=== PATIENT | female | born 1990 | race Caucasian/White ===

== ENCOUNTER 2022-03-26 07:03 | Day surgery (SDC) | payer OTHER ==
[~2022-03-26] VITALS: Ht 157.5 cm; Wt 79.2 kg
--- NOTE | 2022-03-26 07:50 | NUR ---
Patient arrived to the [facility] suite, identification and demographics confirmed. Patient to room 8, AAO and ambulatory vitals obtained, ID/allergy/fall bands placed, changed into hospital gown, procedure and timeline explained. All questions answered, patient presents no concerns at this time.
[2022-03-26 07:51] LABS: HEMOGLOBIN 13.2 g/dl (12.0-16.0); MEAN CELL VOLUME 91.1 fL CALC (80.0-100.0); MEAN CORPUSCULAR HGB 30.8 pG CALC (26.0-32.0); MEAN CORPUSCULAR HGB CONC 33.8 g/dL CAL (32.0-36.0); NEUT# 3.02 thou/uL (2.00-7.15); RED BLOOD COUNT 4.28 mill/uL (4.20-5.60); RED CELL DISTRI WIDTH 12.3 % (11.5-15.5)
--- NOTE | 2022-03-26 07:55 | NUR ---
Dr. Reich telephoned with patient intake information including usage, dose, last dose/time taken and initial vital signs. Patient history and allergies reviewed with MD. Orders received for 15 mg PO Valium and 0.1 mg PO Clonidine and 1L of LR bolus now. Will reassess per protocol and update MD with assessment and vitals.
[2022-03-26 08:04] LABS: ALBUMIN 4.8 g/dL (3.2-5.0); ALKALINE PHOSPHATASE 58 u/l (38-126); ANION GAP 15 (6-22 (CALC)); BILIRUBIN, TOTAL 0.7 mg/dL (0.0-1.4); BUN 14 mg/dL (7-17); BUN/CREATININE RATIO 18 (12-20 (CALC)); CARBON DIOXIDE 27 mmol/l (22-30); CHLORIDE 103 mmol/l (95-108); CREATININE 0.8 mg/dL (0.5-1.0); GFR FOR AFR.AMER. > 60 ML/MIN (>=60 (CALC)); GFR OTHER RACES > 60 ML/MIN (>=60 (CALC)); POTASSIUM 4.1 mmol/l (3.5-5.1); SGOT/AST 34 u/l (14-36); SODIUM 141 mmol/l (137-146); TOTAL PROTEIN 8.3 g/dL (6.3-8.2)
--- NOTE | 2022-03-26 09:30 | NUR ---
Dr. Reich telephoned with patient's vitals signs information dose/time taken and initial vital signs. Per Dr. Reich given verbal order, give patient 500ml of LR bolus. Will reassess per protocol and update MD with assessment and vitals.
--- NOTE | 2022-03-26 11:27 | NUR ---
Patient blood pressure is low. MD called with patients vital signs. Per MD give 1cc of Phenylephrine 40mcg/ml. medication given.
--- NOTE | 2022-03-26 13:29 | NUR ---
Induction Note Patient to [facility] procedure room. Time out performed at 1329. Patient placed on monitors, Alfredo hugger, bilateral wrist restraints applied for ET tube protection. Versed 5mg given IV push at 1331 Tourniquet applied to right arm arm Lidocaine 100mg given at 1332 IV push followed by Rocoronium 10mg at 1333 IV push and held for 90 seconds. Propofol bolus of 110mg given at 1334 IV push. Succinylcholine 80mg given IV push at 1335. Smooth intubation with 7.5 ETT. Positive CO2. Positive Auscultation for air exchange. Patient placed on ventilator for spontaneous ventilation. Placed on Propofol IV drip at 1336. OG inserted. Positive air on auscultation. Positive gastric content. Stomach washed at this time. Naltrexone 50mg given via OG tube with Clonidine 0.2 mg given via OG Tube. OG clamped for 45 minutes. Will monitor patient for symptoms of withdrawal and adjust propfol accordingly.
--- NOTE | 2022-03-26 14:25 | NUR ---
OG open note OG open at this time. Gastric content draining into drainage bag. OG to drain for 45 minutes. Propofol will be titrated down based on patient.
--- NOTE | 2022-03-26 15:10 | NUR ---
OG close note Stomach washed at this time. Naltrexone 50 mg with Clonidine 0.2 mg via OG tube. OG will be clamped for 45 minutes.
[2022-03-26] MEDS ORDERED: CLONIDINE0.1 MG PO (16:46)
[2022-03-26] MEDS ORDERED: NALTREXONE50 MG PO (16:46)
[2022-03-26] MEDS ORDERED: KLONOPIN2 MG PO (16:49)
--- NOTE | 2022-03-26 20:06 | NUR ---
Extubation note Closing medications given Benadryl 50mg IV push, Decadron 10mg IV push,Magnesium 4 grams IV, Zofran 8mg IV push, Octreotide 100mcg SC. Stomach washed out prior to extubation. Suctioned gastric content. OG removed. Patient extubated. Propofol Discontinued. Wrist restraints removed. Alfredo hugger Removed. See [facility] Moderate sedate recovery record for further notes and assessment.
[2022-03-26 20:24] VITALS: BP 106/49
--- NOTE | 2022-03-26 20:30 | NUR ---
PT ARRIVED TO [facility] VIA STRETCHER, ACCOMPANIED BY KENNA NORWOOD. RECEIVED BEDSIDE REPORT FROM KENNA NORWOOD. VS AND ASSESSMENT COMPLETED. PT STILL DROWSY FROM PROCEDURE. EVEN AND UNLABORED RESPIRATIONS: CLEAR LUNG SOUNDS UPON AUSCULTATION. O2 @ 2L VIA NASAL CANNULA IN PLACE. HYPOACTIVE BOWEL SOUNDS X4 QUADRANTS. BED ALARM ACTIVE AND SAFETY PRECAUTIONS IN PLACE. CALL LIGHT IN REACH.
--- NOTE | 2022-03-26 20:30 | NUR ---
PT TRANSFERED TO ROOM 288. NO APPARENT DISTRESS NOTED. VSS. REPORT GIVEN TO ELSA PIERSON.
--- NOTE | 2022-03-26 21:45 | NUR ---
PT WAKING UP, RESTLESS AND AGITATED. PT C/O GENERALIZED PAIN, LEVEL 8/10; pt EXTREMELY NAUSEOUS; ADMINISTERED PAIN MEDN AND NAUSEA MEDICATION PER EMAR. BED ALARM AND SAFETY PRECAUTIONS IN PLACE. CALL LIGHT IN REACH.
[2022-03-26 22:35] VITALS: BP 114/64
--- NOTE | 2022-03-26 23:52 | NUR ---
PT ASSISTED TO BATHROOM, CLEAN LINEN PROVIDED. PT BACK ON BED. NO DISTRESS OR PAIN NOTED. IV SITE HEALTHY AND PATENT, INFUSING IV FLUIDS PER ORDER. BED ALARM ACTIVE AND SAFETY PRECAUTIONS IN PLACE. CALL LIGHT IN REACH.
--- NOTE | 2022-03-27 01:14 | NUR ---
PT ABLE TO VOICED NEEDS. PT ASSISTED TO BATHROOM. PT BACK ON BED. NO DISTRESS OR PAIN NOTED. BED ALARM ACTIVE AND SAFETY PRECAUTIONS IN PLACE. CALL LIGHT IN REACH.
[2022-03-27 04:02] VITALS: BP 108/46
--- NOTE | 2022-03-27 04:30 | NUR ---
PT WAKING UP UPON [employer] FITTER HELPER ENTERS THE ROOM. PT A&O X2. VS OBTAINED BY AIDE AT THIS TIME. NO DISTRESS OR PAIN NOTED. IV SITES FLUSHED: # 20G RT HAND, #20G RT AC, HEALTHY AND PATENT. BED ALARM ACTIVE AND SAFETY PRECAUTIONS IN PLACE. CALL LIGHT IN REACH.
[2022-03-27 04:53] LABS: HEMATOCRIT 38.7 % (37.0-47.0); HEMOGLOBIN 13.3 g/dl (12.0-16.0); IMMATURE GRANULOCYTES 0.2 % (0.0-5.0); MEAN CELL VOLUME 90.2 fL CALC (80.0-100.0); MEAN CORPUSCULAR HGB CONC 34.4 g/dL CAL (32.0-36.0); NEUT# 9.14 thou/uL (2.00-7.15); RED BLOOD COUNT 4.29 mill/uL (4.20-5.60); RED CELL DISTRI WIDTH 12.2 % (11.5-15.5)
[2022-03-27 05:09] LABS: ALKALINE PHOSPHATASE 54 u/l (38-126); ANION GAP 13 (6-22 (CALC)); BILIRUBIN, TOTAL 0.6 mg/dL (0.0-1.4); BUN 11 mg/dL (7-17); BUN/CREATININE RATIO 15 (12-20 (CALC)); CARBON DIOXIDE 23 mmol/l (22-30); CHLORIDE 107 mmol/l (95-108); CREATININE 0.8 mg/dL (0.5-1.0); GFR FOR AFR.AMER. > 60 ML/MIN (>=60 (CALC)); GFR OTHER RACES > 60 ML/MIN (>=60 (CALC)); MAGNESIUM 2.3 mg/dL (1.6-2.3); SGOT/AST 34 u/l (14-36); SODIUM 139 mmol/l (137-146); TOTAL PROTEIN 6.8 g/dL (6.3-8.2)
[2022-03-27 06:56] VITALS: BP 114/66
--- NOTE | 2022-03-27 07:42 | NUR ---
REPORT RECIEVED FROM [employer] DRIVER TRIPPER. PT RESTING IN BED, MOANING COMPLAINS OF ABD PAIN. REPOSTIONED PT. FALL/SAFTEY PRECAUTION IN PLACE, CALL LIGHT WITHIN REACH
--- NOTE | 2022-03-27 14:25 | NUR ---
[facility] STAFF AT BEDSIDE
--- NOTE | 2022-03-27 14:53 | NUR ---
PT SLEEPING IN BED. BREATHING EVEN AND UNLABORED. IV PATENT. FALL/SAFTEY PERCAUTION IN PLACE. CALL LIGHT WITHIN REACH
[2022-03-27 16:23] VITALS: BP 114/66
--- NOTE | 2022-03-27 17:16 | NUR ---
Discharge instructions given. Patient verbalizes understanding of same. Discharged in condition via Wheelchair to Home with staff. All belongings sent with pt.
== END 2022-03-27 17:16 | disposition home or self-care (01) | DRG 897 ==
LOC: ANR 07:03 → ANR-I 07:03 → MS2 18:51 → ANR 03-27 17:16
PROVIDERS: ATTEND Anesthesiology
DX: F11.20 Opioid dependence, uncomplicated (principal)
CPT/HCPCS: J1100; J2354